=== PATIENT | female | born 1995 | race Two or more races ===

== ENCOUNTER 2025-05-27 05:41 | Emergency (ER) | payer SELFPAY ==
[~2025-05-27] VITALS: Ht 167.6 cm; Wt 110.0 kg
[2025-05-27] MEDS: OLANZapine 5 MG TAB PO ONE (06:20)
--- NOTE | 2025-05-27 06:20 | ED.PDOC ---
Psychiatric HPI Comments This is a 29 year old female KLEBER presenting to the ED with chief complaint of hallucinations. Patient reports that she has been without her schizophrenia medication for the past 2 weeks and since then has been experiencing auditory and visual hallucinations. Patient relays that she was dropped off at the crisis center by an unknown person and 911 was called for her. Patient states the voices are telling her "they are going to kill my family." Patient denies any SI, HI, injuries, or any further symptoms. Chief Complaint: Hallucinations Time Seen by MD: 06:18 Reviewed Notes: Nurses Notes, Flooring Salesperson Notes, Medications, Allergies Information Source: Patient, Emergency Med Personnel Mode of Arrival: EMS Severity: Able to Care for Self, Able to Control Self Severity of Pain: None Severity of Mental Status: Moderate Severity of Symptoms: Moderate Timing: Weeks Duration: Since onset Prehospital treatment: None Presents with: Unclear Thinking Ingestion: None Circumstance: Medical Clearance Current substance abuse: None Stressors: None History of: Schizophrenia Associated signs and symptoms: Hallucinations Past Medical History PAST MEDICAL HISTORY: Schizophrenia Surgical History (Other): Lt ankle surgery 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 Family History Family History: Reviewed,noncontributory to illness Social History Smoker: Cigarettes Alcohol: Occasionally Drugs: Denies Drug Use Lives In: Home Constitutional: denies: chills, diaphoresis, fatigue, fever, malaise, sweats, weakness, others EENTM: denies: blurred vision, double vision, ear bleeding, ear discharge, ear drainage, ear pain, ear ringing, eye pain, eye redness, hearing loss, mouth pain, mouth swelling, nasal discharge, nose bleeding, nose congestion, nose pain, photophobia, tearing, throat pain, throat swelling, voice changes, others Respiratory: denies: cough, hemoptysis, orthopnea, SOB at rest, shortness of breath, SOB with excertion, stridor, wheezing, others Cardiovascular: denies: chest pain, dizzy spells, diaphoresis, Dyspnea on exertion, edema, irregular heart beat, left arm pain, lightheadedness, palpitations, PND, syncope, others Gastrointestinal: denies: abdomen distended, abdominal pain, blood streaked bowels, constipated, diarrhea, dysphagia, difficulty swallowing, hematemesis, melena, nausea, poor appetite, poor fluid intake, rectal bleeding, rectal pain, vomiting, others Genitourinary: denies: abnormal vagina bleeding, burning, dyspareunia, dysuria, flank pain, frequency, hematuria, incontinence, pain, , vagina discharge, urgency, others Neurological: denies: dizziness, fainting, headache, left sided numbness, left sided weakness, numbness, paresthesia, pre-existing deficit, right sided numbness, right sided weakness, seizure, speech problems, tingling, tremors, weakness, others Musculoskeletal: denies: back pain, gout, joint pain, joint swelling, muscle pain, muscle stiffness, neck pain, others Integumetry: denies: bruises, change in color, change in hair/nails, dryness, laceration, lesions, lumps, rash, wounds, others Allergic/Immunocompromised: denies: Difficulty Healing, Frequent Infections, Hives, Itching, others Hematologic/Lymphatic: denies: anemia, blood clots, easy bleeding, easy bruising, swollen glands, others Endocrine: denies: excessive hunger, excessive sweating, excessive thirst, excessive urination, flushing, intolerance to cold, intolerance to heat, unexplained weight gain, unexplained weight loss, others Psychiatric: reports: schizophrenia; denies: anxiety, bipolar disorder, depression, hopeless, panic disorder, sleepless, suicidal, others All Other Systems: Reviewed and Negative Physical Exam General Appearance: No Apparent Distress HEENT: Normal ENT Inspection, Pharynx Normal, TMs Normal Neck: Full Range of Motion, Non-Tender, Normal, Normal Inspection Respiratory: Chest Non-Tender, Lungs Clear, No Accessory Muscle Use, No Respiratory Distress, Normal Breath Sounds Cardiovascular: No Edema, No JVD, No Murmur, No Gallop, Normal Peripheral Pulses, Regular Rate/Rhythm Breast Exam: Deferred Gastrointestinal: No Organomegaly, Non Tender, No Pulsatile Mass, Normal Bowel Sounds, Soft Genitalia: Deferred Pelvic: Deferred Rectal: Deferred Extremities: No calf tenderness, Normal capillary refill, Normal inspection, Normal range of motion, Non-tender, No pedal edema Musculoskeletal : Apperance: Normal Neurologic: Alert, pin pusher II-XII nml as Tested, Motor Weakness, Normal Affect, Normal Mood, No Sensory Deficits Cerebellar Function: Normal Reflexes: Normal Skin: Dry, Normal Color, Warm Lymphatic: No Adenopathy Was a procedure done? Was a procedure done?: No Psych Differential Dx Psych. Differential Dx: Schizoprenia X-Ray, Labs, Meds, VS Vital Signs Date Time Temp Pulse Resp B/P (MAP) Pulse Ox O2 Delivery O2 Flow Rate FiO2 05/27/25 08:00 99.0 93 18 138/78 (98) 99 99.0 05/27/25 08:00 93 18 99 Room Air* 0 21 05/27/25 05:45 99.1 98 18 144/101 98 99.1 Lab Test 05/27/25 06:25 05/27/25 06:03 Range/Units Plasma/Serum Blood Alcohol < 3.0 <10 mg/dL Urine Test Negative Negative Urine Opiates Screen Neg NEGATIVE Urine Fentanyl Screen Neg NEGATIVE Urine Barbiturates Screen Neg NEGATIVE Urine Phencyclidine Screen Neg NEGATIVE Urine Amphetamines Screen Neg NEGATIVE Urine Benzodiazepines Screen Neg NEGATIVE Urine Cocaine Screen Neg NEGATIVE Urine Cannabinoids Screen Neg NEGATIVE Current Medications Medications (Trade) Dose Ordered Sig/Berhane Route Start Time Stop Time Status Last Admin Olanzapine (ZyPREXA Tablet) 20 mg ONCE ONCE PO 05/27/25 06:15 05/27/25 06:16 DC 05/27/25 06:20 Ondansetron HCl (Zofran Po) 4 mg ONCE ONCE PO 05/27/25 06:45 05/27/25 06:46 DC 05/27/25 06:50 The urine tox is negative The patient was given Zofran and Zyprexa here in the emergency department's The alcohol level is negative At this time, the test is negative The patient is considered to be medically cleared for evaluation The patient was evaluated by the psychiatrist The patient has been cleared in the patient will be discharged The patient will follow up with the primary care doctor The patient will return to the emergency department's the condition worsens The patient was given a prescription of Zyprexa Time of 1ST Reevaluation: 13:41 Reevaluation 1ST: Improved Patient Education/Counseling: Diagnosis, Treatment, Prognosis, Need For Follow Up Family Education/Counseling: No Family Present Departure 1 Departure Time of Disposition: 13:41 Impression: Primary Impression: Schizophrenia Qualified Codes: F20.9 - Schizophrenia, unspecified Disposition: 01 HOME / SELF CARE / HOMELESS Condition: Fair e-Prescriptions Olanzapine (OLANZAPINE) 10 Mg Tab 1 TAB PO QPM, #30 TAB Prov: LORI JAMESON MD 05/27/25 Discharged With: Self Critical Care Note Critical Care Time?: No Stability Stability form required: No Heart Score Heart Score: Heart Score Response (Comments) Value History N/A 0 EKG N/A 0 Age N/A 0 Risk Factors N/A 0 Troponin N/A 0 Total 0 I personally scribed for LORI JAMESON MD ([email or web address]) on 05/27/25 at 06:20. Electronically submitted by Freddy Albarran ([email or web address]). LORI JAMESON MD May 27, 2025 06:20
[2025-05-27] MEDS: ONDANSETRON ODT 4 MG TAB PO ONE (06:50)
[2025-05-27 08:00] VITALS: PULSE 93; RESP 18; O2SAT 99
[2025-05-27 08:14] LABS: Amphetamine Screen, Urine Neg (NEGATIVE); Barbiturate Scree,Urine Neg (NEGATIVE); Benzodiazephine Screen, Urine Neg (NEGATIVE); Cannabinoid Screen, Urine Neg (NEGATIVE); Cocaine Screen, Urine Neg (NEGATIVE); Opiate Scree,Urine Neg (NEGATIVE); Phencyclidine Screen, Urine Neg (NEGATIVE)
--- NOTE | 2025-05-27 11:54 | DVHINCON2 ---
Date of Service if different f: May 27, 2025 Consultation ([facility]) Labs Laboratory Tests Test 05/27/25 06:03 05/27/25 06:25 Urine Test Negative (Negative) Urine Opiates Screen Neg (NEGATIVE) Urine Fentanyl Screen Neg (NEGATIVE) Urine Barbiturates Screen Neg (NEGATIVE) Urine Phencyclidine Screen Neg (NEGATIVE) Urine Amphetamines Screen Neg (NEGATIVE) Urine Benzodiazepines Screen Neg (NEGATIVE) Urine Cocaine Screen Neg (NEGATIVE) Urine Cannabinoids Screen Neg (NEGATIVE) Plasma/Serum Blood Alcohol < 3.0 mg/dL (<10) Appetite: Fair Appearance: Stated age Psychomotor activity: Lethargic Behavioral: Other Eye contact: Limited Speech: Soft Affect: Appropriate Mood: Other Thought processes: Linear/Goal-directed Thought content: WNL Suicidal ideations: Absent Homicidal ideations: Absent Orientation: Person, Place, Time, Situation Intellect: Average Abstractability: WNL Concentration: Limited Attention: Limited Judgement: WNL Insight: Fair Vitals Vital Signs Date Time Temp Pulse Resp B/P (MAP) Pulse Ox O2 Delivery O2 Flow Rate FiO2 05/27/25 08:00 99.0 93 18 138/78 (98) 99 99.0 05/27/25 08:00 Room Air* 0 21 Treatment plan discussed: With staff Medication adjusted: Yes Diagnosis: schizophrenia, unspecified Plan : Patient is drowsy and history is limited Patient does deny suicidal/homicidal ideation and confirm she wants refill and help with shelters/housing resources Recommend to refill Zyprexa 10mg po qhs or her current dose if this can be ascertained Patient may discharge after medical clearance History of Present Illness Reason for Consult : patient reporting hallucinations HPI : This is a 29-year-old female, reporting history of schizophrenia and homelessness. Patient is evaluated via telepsychiatry. Patient received zyprexa 20mg this Am and was very drowsy. She had trouble staying awake and answering questions, therefore, history is limited. Per report, she left her Zyprexa at boyfriend's house and they ended the relationship and she no longer had access to the medication. She has been without medication for 2 weeks and started hearing voices say they would kill her family. On exam, patient was drowsy with eyes closed, she does not appear to have auditory or visual hallucinations at this time. No signs of responding to unseen stimuli. No paranoid thoughts She denies suicidal/homicidal ideation. Past Psychiatric History : She denies prior suicide attempts or outpatient mental health services. She cannot recall prior dose of Zyprexa or the pharmacy Past Medical History : unable to assess Social History : She is homeless. UDs is negative for substances. Other history is unknown ALMA MAYNARD DNP May 27, 2025 11:54
[2025-05-27] MEDS ORDERED: OLAN1TAB19 PO (13:43)
[2025-05-27 17:45] VITALS: BP 104/56; PULSE 80; RESP 14; TEMP 98.1; O2SAT 98
[2025-05-27] MEDS ORDERED: FLUC200T PO (18:11)
== END 2025-05-27 17:51 | disposition home or self-care (01) ==
LOC: ER 05:41
DX: F20.9 Schizophrenia, unspecified (principal); F17.210 Nicotine dependence, cigarettes, uncomplicated
CPT/HCPCS: 36415; 80307; 80320; 81025; 99284; Q0162